=== PATIENT | female | born 1955 | race African-American/Black ===

== ENCOUNTER → 2016-06-11 | Day surgery (SDC) | payer MEDICARE, OTHER ==
[~2016-06-11] MED LIST: ACIPHEX20 MG; ACIPHEX20 MG PO; ALTACE10 MG; ASPIRIN81 M1 PO; ASPIRIN81 M2 PO; ATENOLOL; BENTYL20 MG PO; CALCIUM ACETAT667 M1 PO; CIPRO250 MG PO; COLACE PO; COUMADIN10 MG PO; COUMADIN7.5 MG PO; FLAGYL PO; FOLBIC PO; FUROSEMIDE80 MG PO; INDOMETHACIN50 MG PO; LANTUS100 U/ML SUBQ; LASIX80 MG PO; LEVAQUIN250 MG; LEVOTHYROXINE150 MC1 PO; LISINOPRIL; LISINOPRIL PO; MIRALAX17 G1 PO; NEURONTIN100 MG PO; NEURONTIN600 MG PO; OMEPRAZOLE40 M1 PO; OMEPRAZOLE40 MG PO; PEPCID AC20 MG PO; PHOSLO667 M1; PRANDIN0.5 MG PO; PRAVASTATIN SOD40 MG PO; PREDNISONE PO; SENSIPAR30 MG PO; SIMVASTATIN40 MG PO; SPECTAZOLE15 GM TOP; SYNTHROID88 MCG PO; THYROID; VITAMIN D1000 UNI2 PO; VITAMIN D250000 UNIT PO; VOLTAREN 0.1%2.5 M1 TOP; WARFARIN SODIUM4 MG PO
--- NOTE | ~2016-06-11 | OR ---
Unit #: [id number] #: [id number] Patient: RAYMON VERA [id number] [address] [address] [id number] MR#: [id number] NAME: RAYMON VERA ROOM: Date of Procedure: 06/11/2016 Admission Date: 06/11/2016 Surgeon: Artemio Schwartz M.D. : 1955 Attending Physician: Artemio Schwartz M.D. Primary Care Physician: Doroteo Moran M.D. OPERATIVE REPORT PRIMARY CARE PHYSICIAN Doroteo Moran M.D. PREOPERATIVE DIAGNOSES Dysphagia. PROCEDURES PERFORMED 1. Upper gastrointestinal endoscopy and biopsy. 2. Upper gastrointestinal endoscopy and dilation. POSTOPERATIVE DIAGNOSES 1. The patient had distal esophageal mucosal ring. The latter was dilated using a 60-[place] Armstrong dilator. 2. Mild prepyloric antral gastritis. 3. Rest of the examination up to third part of duodenum was normal. Biopsies obtained from the antrum for CLOtest. In addition, distal esophageal ring was dilated using a 60-[place] Armstrong dilator. RECOMMENDATIONS The patient will continue using omeprazole 40 mg, but instead of using at bedtime, she used in the morning. In addition, she will resume Coumadin or warfarin tomorrow. SEDATION USED MAC. DESCRIPTION OF PROCEDURE Following detailed explanation of potential risks and complications of an upper endoscopy, namely perforation, bleeding, and complications related to sedation, the patient was brought to GI lab and laid in the left lateral decubitus position. Lubricated tip of the Olympus video upper endoscope was passed through the bite block into the proximal esophagus under direct vision. The entire esophageal mucosa was examined. The patient was noted to have distal esophageal mucosal ring. The latter was felt to be nonobstructing. The scope was then advanced into the gastric cavity and the latter was insufflated. Mucosa of the fundus, body, and antrum examined and mild prepyloric antral erosive gastritis noted. Pylorus was intubated with visualization of the normal duodenal bulb and second and third part of the duodenum. Upon withdrawal and retroflexion, incisura, cardia, and greater curve examined and a biopsy obtained from the antrum for CLOtest. The scope was withdrawn in the distal esophagus. The entire esophageal mucosa was examined all the way up to pharynx. No Unit #: [id number] #: [id number] Patient: RAYMON VERA additional findings noted. A 60-[place] Armstrong dilator was introduced through the oral cavity into the esophagus. Relook endoscopy showed fracturing of the distal esophageal ring. Minimal bleeding was noted. The area was thoroughly washed with water and good hemostasis was achieved. The scope was then withdrawn. The patient returned to the recovery area. She tolerated the procedure without any postprocedure complications. Dictated by... Ronald Sanders/michael TD: 06/11/2016 08:27 JOB #: [id number] OPERATIVE REPORT X Artemio Schwartz MD X PROCEDURE OPERATIVE NOTE
== END | disposition home or self-care (01) ==
LOC: COPS 06:06
DX: K22.2 Esophageal obstruction (principal); K29.70 Gastritis, unspecified, without bleeding; R13.10 Dysphagia, unspecified; E03.9 Hypothyroidism, unspecified; I12.0 Hypertensive chronic kidney disease with stage 5 chronic kidney disease or end stage renal disease; N18.6 End stage renal disease; K21.9 Gastro-esophageal reflux disease without esophagitis; E11.9 Type 2 diabetes mellitus without complications; E66.01 Morbid (severe) obesity due to excess calories; Z90.711 Acquired absence of uterus with remaining cervical stump; Z79.82 Long term (current) use of aspirin; Z79.899 Other long term (current) drug therapy
CPT/HCPCS: 82947; 87077